=== PATIENT | male | born 1940 | race Caucasian/White ===

== ENCOUNTER 2017-04-29 17:40 | Emergency (ER) | payer OTHER ==
[~2017-04-29] VITALS: Ht 180.3 cm; Wt 91.1 kg
[~2017-04-29 17:40] MED LIST: ACETAMINOPHEN1 EAC1 PO; CALTRATE 600600 MG PO; CEFTIN500 MG PO; CO Q-1010 MG PO; CO Q-10100 MG PO; COUMADIN5 MG PO; DELATESTRY200 MG/1 M IM; DILTIAZEM 24HR120 MG PO; FLECAINIDE ACET50 MG; FOLIC ACID0.8 MG PO; GABAPENTIN300 MG PO; GARLIC OIL1 EACH PO; IMODIUM MS REL1 EACH PO; IRON325 M1 PO; JANTOVEN5 MG PO; LISINOPRIL-HCT1 EAC3 PO; LISINOPRIL10 MG PO; MECLIZINE HCL25 MG PO; METOPROLOL SUC100 MG PO; METOPROLOL SUCC50 MG PO; MULTIVITAMINS1 EAC2 PO; NAPROXEN250 M1 PO; NATURAL VITA200 UNIT PO; NEURONTIN300 MG PO; NORCO 7.5/321 TABLET PO; OMEGA 3 1,0001 EACH PO; POTA; POTASSIUM; POTASSIUM-9999 MG PO; PRINZIDE 20-251 EACH; PROTONIX40 MG PO; SIMVASTATIN40 MG PO; TAMBOCOR50 MG PO; TESTOSTERO200 MG/12 IM; TOPROL XL50 MG PO; TYLENOL REGULA325 MG PO; ULTRAM50 MG PO; VICODIN,LORT1 TABLET PO; VITAMIN E400 UNI6 PO; WARFARIN SODIU2.5 MG PO; WARFARIN SODIUM5 MG PO; ZESTORETIC 20-1 EAC1 PO; ZITHROMAX Z-PA250 MG PO; ZOCOR40 MG PO
[2017-04-29 18:13] LABS: BASOPHIL (%) 0.7 % (0-1); EOSINOPHIL (%) 2.1 % (0-5); EOSINOPHIL COUNT 0.1 K/uL (0-0.3); HEMATOCRIT 43.4 % (38.0-50.0); HEMOGLOBIN 14.5 G/DL (12.5-16.6); IMMATURE GRANULOCYTE (%) 0.2 % (0.0-0.7); LYMPHOCYTE (%) 27.4 % (15-42); LYMPHOCYTE COUNT 1.6 K/uL (1.0-2.8); MCH 31.1 PG (29.0-34.0); MCHC 33.4 G/DL (30.0-36.0); MCV 93.1 FL (86-99); MONOCYTE (%) 11.8 % (3-12); MONOCYTE COUNT 0.7 K/uL (0-0.8); NEUTROPHIL (%) 57.8 % (45-76); NEUTROPHIL COUNT 3.3 K/uL (1.8-6.4); PLATELET COUNT 213 K/uL (156-360); RED BLOOD COUNT 4.66 M/uL (4.00-5.50); WHITE BLOOD COUNT 5.8 K/uL (4.1-10.2)
[2017-04-29 18:15] LABS: CHLORIDE 106 mEq/L (99-109); POTASSIUM 4.8 mEq/L (3.7-5.4); SODIUM 141 mEq/L (136-147)
[2017-04-29 18:17] LABS: GLUCOSE 79 mg/dL (70-99)
[2017-04-29 18:21] LABS: CREATININE 1.2 mg/dL (0.6-1.3); GFR ESTIMATE (CALCULATED) > 59 mL/min/ (58.99-99999)
[2017-04-29 18:22] LABS: UREA NITROGEN (BUN) 22 mg/dL (9-23)
[2017-04-29 19:31] LABS: APPEARANCE SL.HAZY ((CLEAR)); BILIRUBIN NEGATIVE; BLOOD NEGATIVE; COLOR YELLOW ((YELLOW)); GLUCOSE (STRIP) NEGATIVE; KETONES NEGATIVE; LEUKOCYTES NEGATIVE; NITRITE NEGATIVE; PROTEIN (STRIP) NEGATIVE; SPECIFIC GRAVITY 1.025 (1.000-1.030); UROBILINOGEN 0.2 MG/DL (0.2-1.0)
[2017-04-29] MEDS ORDERED: KENALOG,ARISTOC80 G1 TP (19:41)
[2017-04-29 19:58] VITALS: BP 120/70
[2017-04-29 20:09] LABS: BACTERIA NONE SEEN /HPF; EPITHELIAL CELLS RARE /HPF; HYALINE CASTS TNTC /LPF; MUCUS TRACE /LPF; UCUL ADDED? YES
== END 2017-04-29 20:00 | disposition home or self-care (01) ==
LOC: EME 17:40
DX: L98.9 Disorder of the skin and subcutaneous tissue, unspecified (principal); N64.59 Other signs and symptoms in breast; I10 Essential (primary) hypertension; Z86.73 Personal history of transient ischemic attack (TIA), and cerebral infarction without residual deficits; Z95.0 Presence of cardiac pacemaker; Z79.01 Long term (current) use of anticoagulants; Z87.891 Personal history of nicotine dependence
CPT/HCPCS: 71046; 80048; 81003; 83605; 85025; 87086 GA; 99281; 99284

== ENCOUNTER 2017-06-01 12:06 | Emergency (ER) | payer OTHER ==
[~2017-06-01] VITALS: Ht 180.3 cm; Wt 88.6 kg
[~2017-06-01 12:06] MED LIST changes: +KENALOG,ARISTOC80 G1 TP
[2017-06-01] MEDS ORDERED: PERCOCET 5/31 TABLET PO (16:22)
[2017-06-01] MEDS ORDERED: KEFLEX500 MG PO (16:22)
[2017-06-01 16:55] VITALS: BP 161/90
== END 2017-06-01 17:09 | disposition home or self-care (01) ==
LOC: EME 12:06
DX: S61.313A Laceration without foreign body of left middle finger with damage to nail, initial encounter (principal); S61.211A Laceration without foreign body of left index finger without damage to nail, initial encounter; W31.2XXA Contact with powered woodworking and forming machines, initial encounter; Z79.01 Long term (current) use of anticoagulants; Z23 Encounter for immunization; I10 Essential (primary) hypertension; F32.9 Major depressive disorder, single episode, unspecified; Z86.73 Personal history of transient ischemic attack (TIA), and cerebral infarction without residual deficits; Z87.891 Personal history of nicotine dependence
CPT/HCPCS: 73130; 99281; 99285; J2270; J2405

== ENCOUNTER 2017-07-13 11:18 | Emergency (ER) | payer OTHER ==
[~2017-07-13] VITALS: Ht 180.3 cm; Wt 89.9 kg
[~2017-07-13 11:18] MED LIST changes: +KEFLEX500 MG PO; +PERCOCET 5/31 TABLET PO
[2017-07-13 11:57] VITALS: BP 108/95
== END 2017-07-13 11:58 | disposition home or self-care (01) ==
LOC: EME 11:18
DX: R73.03 Prediabetes (principal); I10 Essential (primary) hypertension; J44.9 Chronic obstructive pulmonary disease, unspecified; F32.9 Major depressive disorder, single episode, unspecified; Z87.891 Personal history of nicotine dependence; Z85.9 Personal history of malignant neoplasm, unspecified; Z95.0 Presence of cardiac pacemaker; Z86.73 Personal history of transient ischemic attack (TIA), and cerebral infarction without residual deficits
CPT/HCPCS: 82948; 99281; 99282